=== PATIENT | male | born 1990 | race Asian ===

== ENCOUNTER 2021-08-04 13:28 | Emergency (ER) | payer OTHER, SELFPAY ==
[~2021-08-04] VITALS: Ht 177.8 cm; Wt 86.2 kg
[2021-08-04 13:50] VITALS: BP_SYST 112
[2021-08-04 14:53] LABS: BASOPHILS % (AUTO) 0.2 % (0.0-2.0); EOSINOPHILS % (AUTO) 0.1 % (0.0-4.0); HEMATOCRIT 45.9 % (36-54); HEMOGLOBIN 15.5 g/dL (14.0-18.0); LYMPHOCYTES # (AUTO) 0.9 K/uL (1.0-5.5); MEAN CORPUSCULAR HEMOGLOBIN 29 pg (27-31); MEAN CORPUSCULAR HGB CONC 34 % (32-36); MEAN CORPUSCULAR VOLUME 86 fL (79.0-98.0); MONOCYTES # (AUTO) 0.8 K/uL (0.0-1.0); MONOCYTES % (AUTO) 7.4 % (1.7-9.3); NEUTROPHILS # (AUTO) 9.1 K/uL (1.8-7.7); NEUTROPHILS % (AUTO) 84.3 % (40.0-70.0); PLATELET COUNT (AUTO) 216 K/uL (130-430); RED BLOOD CELL COUNT(AUTO) 5.32 MIL/uL (4.2-6.2); RED CELL DISTRIBUTION WIDTH 14.1 % (9.0-15.0); WHITE BLOOD COUNT (AUTO) 10.7 K/uL (4.8-10.8)
[2021-08-04 15:07] LABS: CALCIUM 7.7 mg/dL (8.4-11.0); CREATININE 0.94 mg/dL (0.55-1.30); POTASSIUM 3.6 mmol/L (3.5-5.1)
[2021-08-04 15:13] LABS: TOTAL BILIRUBIN 0.6 mg/dL (0.0-1.0)
[2021-08-04] MEDS ORDERED: ONDANSETRON HCL 4 MG/2 ML VIAL IVP ONE (15:15)
[2021-08-04] MEDS ORDERED: NACL 0.9% 1,000 ML IV ONE (15:15)
[2021-08-04] MEDS ORDERED: LOPE2CAP PO (15:37)
[2021-08-04] MEDS ORDERED: ONDA-8 TL (15:37)
[2021-08-04] MEDS ORDERED: ONDANSETRON 4 MG ODT TAB PO ONE (16:00)
[2021-08-04] MEDS ORDERED: LOPERAMIDE HCL 2 MG CAPSULE PO ONE (16:00)
[2021-08-04] MEDS ORDERED: IBUPROFEN 600 MG TABLET PO ONE (16:45)
[2021-08-04 17:42] VITALS: BP_SYST 132
== END 2021-08-04 17:42 | disposition home or self-care (01) ==
LOC: SED 13:28
DX: R10.10 Upper abdominal pain, unspecified (principal); R11.2 Nausea with vomiting, unspecified; Z79.899 Other long term (current) drug therapy; Z20.822 Contact with and (suspected) exposure to COVID-19
CPT/HCPCS: 36415; 76376; 80053; 83690; 85025; 87040; 99284